=== PATIENT | male | born 1990 | race Caucasian/White ===

== ENCOUNTER 2016-11-18 13:01 | Outpatient (CLI) | payer MEDICAID | END 2016-11-18 13:02 | disposition home or self-care (01) | LOC: SC 13:01 | PROVIDERS: ATTEND Specialist | DX: G47.10 Hypersomnia, unspecified (principal); R06.83 Snoring; R06.00 Dyspnea, unspecified | CPT/HCPCS: 99205; 99212 ==

== ENCOUNTER 2016-12-30 09:03 | Outpatient (CLI) | payer MEDICAID | END 2016-12-30 09:04 | disposition home or self-care (01) | LOC: SC 09:03 | PROVIDERS: ATTEND Specialist | DX: G47.33 Obstructive sleep apnea (adult) (pediatric) (principal) | CPT/HCPCS: 99212; 99213 ==

== ENCOUNTER 2017-02-03 08:40 | Outpatient (CLI) | payer MEDICAID | END 2017-02-03 08:41 | disposition home or self-care (01) | LOC: SC 08:40 | PROVIDERS: ATTEND Specialist | DX: G47.33 Obstructive sleep apnea (adult) (pediatric) (principal) | CPT/HCPCS: 99212; 99213 ==

== ENCOUNTER 2017-04-06 13:28 | Outpatient (CLI) | payer MEDICAID | END 2017-04-06 13:29 | disposition home or self-care (01) | LOC: SC 13:28 | PROVIDERS: ATTEND Nurse Practitioner Family | DX: G47.33 Obstructive sleep apnea (adult) (pediatric) (principal) | CPT/HCPCS: 99212; 99214 ==

== ENCOUNTER 2017-05-25 09:10 | Outpatient (CLI) | payer MEDICAID | END 2017-05-25 09:11 | disposition home or self-care (01) | LOC: SC 09:10 | PROVIDERS: ATTEND Nurse Practitioner Family | DX: G47.33 Obstructive sleep apnea (adult) (pediatric) (principal) | CPT/HCPCS: 99212; 99214 ==

== ENCOUNTER 2017-06-30 09:49 | Outpatient (CLI) | payer MEDICAID | END 2017-06-30 09:50 | disposition home or self-care (01) | LOC: SC 09:49 | PROVIDERS: ATTEND Nurse Practitioner Family | DX: G47.33 Obstructive sleep apnea (adult) (pediatric) (principal) | CPT/HCPCS: 99212; 99213 ==

== ENCOUNTER 2017-08-03 09:00 | Outpatient (CLI) | payer MEDICAID | END 2017-08-03 09:01 | disposition home or self-care (01) | LOC: SC 09:00 | PROVIDERS: ATTEND Nurse Practitioner Family | DX: G47.33 Obstructive sleep apnea (adult) (pediatric) (principal) | CPT/HCPCS: 99212; 99214 ==

== ENCOUNTER 2017-08-26 20:04 | Outpatient (CLI) | payer MEDICAID | END 2017-08-26 20:05 | disposition home or self-care (01) | LOC: SC 20:04 | PROVIDERS: ATTEND Internal Medicine Pulmonary Disease | DX: G47.33 Obstructive sleep apnea (adult) (pediatric) (principal); G47.61 Periodic limb movement disorder | CPT/HCPCS: 95811 ==

== ENCOUNTER 2017-09-28 14:11 | Outpatient (CLI) | payer MEDICAID | END 2017-09-28 14:12 | disposition home or self-care (01) | LOC: SC 14:11 | PROVIDERS: ATTEND Nurse Practitioner Family | DX: G47.33 Obstructive sleep apnea (adult) (pediatric) (principal); G47.61 Periodic limb movement disorder | CPT/HCPCS: 99212; 99214 ==

== ENCOUNTER 2017-12-17 08:47 | Outpatient (CLI) | payer MEDICAID | END 2017-12-17 08:48 | disposition home or self-care (01) | LOC: SC 08:47 | PROVIDERS: ATTEND Nurse Practitioner Family | DX: G47.33 Obstructive sleep apnea (adult) (pediatric) (principal) | CPT/HCPCS: 99212; 99214 ==